=== PATIENT | female | born 1985 | race Caucasian/White ===

== ENCOUNTER 2024-04-11 14:44 | Emergency (ER) | payer SELFPAY ==
[~2024-04-11] VITALS: Ht 160 cm; Wt 68.0 kg
[2024-04-11 14:53] VITALS: BP 116/76; PULSE 58; RESP 16; TEMP 98.5; O2SAT 100
[2024-04-11] MEDS: LIDOCAINE HCL 1% 20ML VIAL INFIL ONE (17:56)
== END 2024-04-11 19:43 | disposition home or self-care (01) ==
LOC: ER 14:44
DX: S16.1XXA Strain of muscle, fascia and tendon at neck level, initial encounter (principal); S29.012A Strain of muscle and tendon of back wall of thorax, initial encounter; X58.XXXA Exposure to other specified factors, initial encounter; Y93.89 Activity, other specified; Y92.89 Other specified places as the place of occurrence of the external cause; Y99.8 Other external cause status
CPT/HCPCS: 99282; J3490; Z7610